=== PATIENT | female | born 1960 | race Caucasian/White ===

== ENCOUNTER → 2018-10-12 | Day surgery (SDC) | payer MEDICARE ==
[~2018-10-12] MED LIST: AMITRIPTYLINE H75 MG PO; BOTULINUM TOXIN TYPE A 100 UNIT VIAL IM ONE; BUSPIRONE HCL5 MG PO; CLONIDINE HCL0.1 MG PO; CYCLOBENZAPRINE10 MG PO; EVOXAC30 MG PO; FENTANYL CITRATE/PF 100MCG/2 ML INJ ONE; IBUPROFEN200 MG PO; LEVOTHYROXINE50 MCG PO; LEVOXYL50 MCG PO; LEXAPRO10 MG PO; MECLIZINE HCL12.5 MG PO; METOCLOPRAMIDE10 MG PO; MIDAZOLAM HCL 2 MG/2 ML VIAL ONE; OXYCODONE-ACET1 EAC1 PO; PANTOPRAZOLE SO40 MG PO; POTASSIUM CHLO20 ME1 PO; PROMETHAZINE HC25 M1 PO; PROPOFOL IV EMULSION 10 MG/ML 20 ML VIAL ONE
[2018-10-12 12:46] VITALS: BP 125/78
== END | disposition home or self-care (01) ==
LOC: OR 08:45
PROVIDERS: ATTEND Internal Medicine Gastroenterology
DX: K29.40 Chronic atrophic gastritis without bleeding (principal); K44.9 Diaphragmatic hernia without obstruction or gangrene; K21.9 Gastro-esophageal reflux disease without esophagitis; K31.84 Gastroparesis; K31.9 Disease of stomach and duodenum, unspecified; K59.00 Constipation, unspecified; Z86.010 Personal history of colon polyps; E66.9 Obesity, unspecified; Z68.32 Body mass index [BMI] 32.0-32.9, adult; Z71.3 Dietary counseling and surveillance; E73.9 Lactose intolerance, unspecified; Z01.810 Encounter for preprocedural cardiovascular examination; G43.909 Migraine, unspecified, not intractable, without status migrainosus; M06.9 Rheumatoid arthritis, unspecified; G47.30 Sleep apnea, unspecified; E03.9 Hypothyroidism, unspecified
CPT/HCPCS: 43236; 43239; 88305; 88312; 93005; J0587; J2250; J2704

== ENCOUNTER → 2019-03-15 | Day surgery (SDC) | payer MEDICARE ==
[~2019-03-15] MED LIST changes: -PROPOFOL IV EMULSION 10 MG/ML 20 ML VIAL ONE; +PROPOFOL IV EMULSION 10 MG/ML 50 ML VIAL ONE
[2019-03-15 11:45] VITALS: BP 121/67
== END | disposition home or self-care (01) ==
LOC: OR 08:43
PROVIDERS: ATTEND Internal Medicine Gastroenterology
DX: K29.50 Unspecified chronic gastritis without bleeding (principal); K31.84 Gastroparesis; K21.9 Gastro-esophageal reflux disease without esophagitis; K44.9 Diaphragmatic hernia without obstruction or gangrene; K58.9 Irritable bowel syndrome, unspecified; K59.03 Drug induced constipation; Z71.3 Dietary counseling and surveillance; E66.9 Obesity, unspecified; E03.9 Hypothyroidism, unspecified; M19.90 Unspecified osteoarthritis, unspecified site; Z88.6 Allergy status to analgesic agent; Z88.8 Allergy status to other drugs, medicaments and biological substances; Z01.810 Encounter for preprocedural cardiovascular examination; Z68.33 Body mass index [BMI] 33.0-33.9, adult; Z87.891 Personal history of nicotine dependence
CPT/HCPCS: 43236; 43239; 88305; 88312; 93005; J0587; J2250; J2704; J3010

== ENCOUNTER → 2022-04-15 | Outpatient (CLI) | payer MEDICARE ==
[~2022-04-15] MED LIST changes: -BOTULINUM TOXIN TYPE A 100 UNIT VIAL IM ONE; +CRESTOR10 MG PO; +DIATRIZOATE MEGL/DIATRIZOA SOD 30 ML BTL PO ONE; +ECOTRIN81 MG; -FENTANYL CITRATE/PF 100MCG/2 ML INJ ONE; +IBUPROFEN400 MG PO; +IOPAMIDOL 370 MG/ML 100 ML INFUS..BTL INJ ONE; +LEVOXYL50 MCG; +METAXALONE400 MG PO; -MIDAZOLAM HCL 2 MG/2 ML VIAL ONE; +PHENERGAN PO; -PROPOFOL IV EMULSION 10 MG/ML 50 ML VIAL ONE; +STOOL SOFTENER50 MG; +TRIAMTERENE-HC1 EAC1; +TYLENOL SINUS
[2022-04-15 12:40] LABS: CREATININE, SERUM 0.72 mg/dL (0.57-1.11)
== END ==
LOC: CT 11:18
PROVIDERS: ATTEND Internal Medicine Gastroenterology
DX: K59.03 Drug induced constipation (principal); K31.84 Gastroparesis; K21.9 Gastro-esophageal reflux disease without esophagitis; K44.9 Diaphragmatic hernia without obstruction or gangrene
CPT/HCPCS: 36415; 74177; 82565; 84520; Q9963; Q9967